=== PATIENT | male | born 1985 | race American Indian/Alaskan Native ===

== ENCOUNTER 2020-11-14 08:00 | Outpatient (CLI) | payer OTHER | END 2020-11-14 08:30 | disposition home or self-care (01) | LOC: PPH VACUNA 08:00 | PROVIDERS: ATTEND Emergency Medicine Pediatric Emergency Medicine | DX: Z23 Encounter for immunization (principal) ==

== ENCOUNTER 2021-09-30 14:05 | Outpatient (CLI) | payer OTHER | END 2021-09-30 14:10 | disposition home or self-care (01) | LOC: RAD 14:05 | DX: M25.512 Pain in left shoulder (principal) ==

== ENCOUNTER 2021-10-24 08:00 | Outpatient (CLI) | payer OTHER | END 2021-10-24 08:05 | disposition home or self-care (01) | LOC: PPH VACUNA 08:00 | PROVIDERS: ATTEND Emergency Medicine Pediatric Emergency Medicine | DX: Z23 Encounter for immunization (principal) ==

== ENCOUNTER 2021-11-18 16:43 | Outpatient (CLI) | payer OTHER | END 2021-11-18 23:00 | disposition home or self-care (01) | LOC: LAB 16:43 | PROVIDERS: ATTEND Anesthesiology | DX: Z28.311 Partially vaccinated for COVID-19 (principal) ==